=== PATIENT | female | born 1995 | race African-American/Black ===

== ENCOUNTER 2018-05-24 08:33 | Inpatient (IN) ==
[2018-05-24 09:50] LABS: Basophils % 0.4 % (0.0-0.8); Eosinophils # 0.1 10*3/uL (0.0-0.87); Hematocrit 25.9 VOL% (35.7-47.0); Hemoglobin 8.2 GM/DL (12.0-16.0); Immature Granulocytes % 1.5 %; Immature Granulocytes Absolute 0.14 #; Lymphocytes # 1.5 10*3/uL (1.4-4.0); Lymphocytes % 16.2 % (21.3-54.2); Mean Corpuscular HGB Conc 31.7 GM/DL (32-36); Mean Corpuscular Hemoglobin 24 PG (27-34); Mean Corpuscular Volume 74.6 FL (87-102); Mean Platelet Volume 11.8 FL (9.6-12.0); Monocytes % 10.4 % (1.7-12.7); NRBC # 0.03 10*3/uL; Neutrophils # 6.5 10*3/uL (1.4-7.4); Neutrophils % 70.5 % (38.7-73.9); Platelet Count 291 T/CUMM (130-400); Red Blood Count 3.47 MC/CUMM (3.8-5.5); Red Cell Distribution Width 16.1 % (9.3-17.3); White Blood Count 9.2 T/CUMM (4-12)
[2018-05-24 10:18] LABS: Alanine Aminotransferase < 6 U/L (13-56); Albumin 2.2 G/DL (3.4-5.0); Alkaline Phosphatase 1134 U/L (45-117); Aspartate Amino Transferase 10 U/L (0-37); Bilirubin,Total < 0.39 MG/DL (0.2-1.0); Blood Urea Nitrogen 8 MG/DL (7-18); Calcium 8.2 MG/DL (8.5-10.1); Glucose 68 MG/DL (74-106); Osmolality,Calculated 274.4 MOS/KG (273-304); Sodium 140 MMOL/L (136-145); Total Protein 6.2 G/DL (6.4-8.3)
[2018-05-24 11:52] LABS: Cord Arterial Blood HCO3 21.7 MMOL/L
[2018-05-24 11:53] LABS: Cord Venous Blood HCO3 22.9 MMOL/L; Cord Venous Blood PCO2 37.2 MMHG; Cord Venous Blood PO2 34.6 MMHG
[2018-05-24 22:13] LABS: Hematocrit 26.1 VOL% (35.7-47.0); Hemoglobin 8.1 GM/DL (12.0-16.0)
[2018-05-25 02:47] LABS: Basophils % 0.3 % (0.0-0.8); Eosinophils # 0.1 10*3/uL (0.0-0.87); Eosinophils % 0.5 % (0.00-10.9); Hemoglobin 7.4 GM/DL (12.0-16.0); Immature Granulocytes Absolute 0.14 #; Lymphocytes # 2.1 10*3/uL (1.4-4.0); Lymphocytes % 15.2 % (21.3-54.2); Mean Corpuscular HGB Conc 30.8 GM/DL (32-36); Mean Corpuscular Hemoglobin 23 PG (27-34); Mean Corpuscular Volume 75.2 FL (87-102); Mean Platelet Volume 12.2 FL (9.6-12.0); Monocytes # 1.3 10*3/uL (0.11-0.8); Monocytes % 9.3 % (1.7-12.7); NRBC # 0.02 10*3/uL; Neutrophils % 73.7 % (38.7-73.9); Platelet Count 270 T/CUMM (130-400); Red Blood Count 3.19 MC/CUMM (3.8-5.5); White Blood Count 13.5 T/CUMM (4-12)
[2018-05-26 07:30] LABS: Basophils % 0.3 % (0.0-0.8); Eosinophils # 0.1 10*3/uL (0.0-0.87); Eosinophils % 0.6 % (0.00-10.9); Hematocrit 26.6 VOL% (35.7-47.0); Hemoglobin 8.6 GM/DL (12.0-16.0); Immature Granulocytes % 1.1 %; Immature Granulocytes Absolute 0.15 #; Lymphocytes % 13.9 % (21.3-54.2); Mean Corpuscular HGB Conc 32.3 GM/DL (32-36); Mean Corpuscular Hemoglobin 25 PG (27-34); Mean Corpuscular Volume 76.9 FL (87-102); Mean Platelet Volume 11.7 FL (9.6-12.0); Monocytes # 1.4 10*3/uL (0.11-0.8); Monocytes % 9.9 % (1.7-12.7); NRBC # 0.04 10*3/uL; Neutrophils # 10.5 10*3/uL (1.4-7.4); Neutrophils % 74.2 % (38.7-73.9); Platelet Count 270 T/CUMM (130-400); Red Blood Count 3.46 MC/CUMM (3.8-5.5); Red Cell Distribution Width 16.6 % (9.3-17.3); White Blood Count 14.2 T/CUMM (4-12)
[2018-05-26 07:41] VITALS: BP 130/75
== END 2018-05-26 12:20 | disposition home or self-care (01) | DRG 766 ==
LOC: N.LDOUT 08:33 → N.LD 08:36 → N.OB 14:36
PROVIDERS: ADMIT Obstetrics & Gynecology; ATTEND Obstetrics & Gynecology
PROC: LDCSECT (ICD-10-PCS; 2018-05-24 10:40)

== ENCOUNTER 2021-03-30 14:04 | Observation (INO) ==
[2021-03-30] MEDS ORDERED: SODIUM CHLORIDE 0.9% 500 ML IV STA (16:58)
[2021-03-30] MEDS ORDERED: KETOROLAC 30 MG/1 ML VIAL IV STA (16:58)
[2021-03-30 17:44] LABS: Basophils # 0.1 10*3/uL (0.0-0.2); Basophils % 0.3 % (0.0-0.8); Eosinophils # 0.1 10*3/uL (0.0-0.87); Eosinophils % 0.3 % (0.00-10.9); Hematocrit 36.1 VOL% (35.7-47.0); Hemoglobin 11.6 GM/DL (12.0-16.0); Immature Granulocytes % 0.6 %; Immature Granulocytes Absolute 0.11 #; Lymphocytes # 2.5 10*3/uL (1.4-4.0); Lymphocytes % 13.8 % (21.3-54.2); Mean Corpuscular HGB Conc 32.1 GM/DL (32-36); Mean Corpuscular Volume 84.3 FL (87-102); Mean Platelet Volume 11.2 FL (9.6-12.0); Monocytes % 6.1 % (1.7-12.7); Neutrophils % 78.9 % (38.7-73.9); Platelet Count 277 T/CUMM (130-400); Red Blood Count 4.28 MC/CUMM (3.8-5.5); Red Cell Distribution Width 13.2 % (9.3-17.3)
[2021-03-30] MEDS ORDERED: ONDANSETRON 4 MG/2 ML VIAL IV PRN (17:53)
[2021-03-30] MEDS ORDERED: ACETAMINOPHEN 325 MG TABLET PO PRN (17:53)
[2021-03-30 17:58] LABS: Osmolality,Calculated 271.7 MOS/KG (273-304); Potassium 3.7 MMOL/L (3.5-5.1)
[2021-03-30] MEDS: PIPERACILLIN/TAZOBACTAM 3,375 MG in SODIUM CHLORIDE 0.9% 100 ML IV SCH (18:45)
[2021-03-30] MEDS: LACTATED RINGERS 1,000 ML IV SCH (18:45)
[2021-03-31] MEDS: LACTATED RINGERS 1,000 ML IV SCH ×4 (02:45→21:49)
[2021-03-31] MEDS: PIPERACILLIN/TAZOBACTAM 3,375 MG in SODIUM CHLORIDE 0.9% 100 ML IV SCH (07:55)
[2021-03-31] MEDS ORDERED: SEVOFLURANE 1 UNIT/15 MINUTE INH ONE (08:23)
[2021-03-31] MEDS ORDERED: LIDOCAINE 2% 5 ML VIAL ONE (08:23)
[2021-03-31] MEDS ORDERED: DEXAMETHASONE 4 MG/1 ML VIAL ONE ×2 (08:23→08:26)
[2021-03-31] MEDS ORDERED: ONDANSETRON 4 MG/2 ML VIAL ONE (08:23)
[2021-03-31] MEDS ORDERED: propofoL 200 MG/20 ML VIAL IV ONE (08:23)
[2021-03-31] MEDS ORDERED: fentaNYL 100 MCG/2 ML VIAL ONE (08:23)
[2021-03-31] MEDS ORDERED: MIDAZOLAM 2 MG/2 ML VIAL ONE (08:24)
[2021-03-31] MEDS ORDERED: KETOROLAC 30 MG/1 ML VIAL ONE (08:48)
[2021-03-31] MEDS: PANTOPRAZOLE 40 MG TABLET PO SCH (10:04)
[2021-03-31] MEDS ORDERED: HYDROmorphone 2 MG/1 ML VIAL IV PRN (10:15)
[2021-03-31] MEDS: KETOROLAC 30 MG/1 ML VIAL IV SCH ×3 (10:53→21:49)
[2021-03-31] MEDS: CLINDAMYCIN 300 MG CAPSULE PO SCH ×2 (15:34→21:47)
[2021-04-01] MEDS: KETOROLAC 30 MG/1 ML VIAL IV SCH ×2 (05:04→12:11)
[2021-04-01] MEDS: CLINDAMYCIN 300 MG CAPSULE PO SCH (05:42)
[2021-04-01] MEDS: LACTATED RINGERS 1,000 ML IV SCH (05:45)
[2021-04-01] MEDS: PANTOPRAZOLE 40 MG TABLET PO SCH (09:27)
[2021-04-01 12:08] VITALS: BP 108/63
== END 2021-04-01 12:57 | disposition home or self-care (01) ==
LOC: N.ED 14:04 → N.EDINP 17:53 → INTOOBSV 17:53 → N.3E 03-31 08:00
PROVIDERS: ADMIT Surgery; ATTEND Surgery